=== PATIENT | male | born 1995 | race Caucasian/White ===

== ENCOUNTER 2020-08-27 13:03 | Emergency (ER) | payer MEDICAID ==
[~2020-08-27] VITALS: Ht 180.3 cm; Wt 154.0 kg
[2020-08-27 14:04] LABS: BASOPHILS % 0.4 % (0.0-2.0); EOSINOPHILS % 0.4 % (0.0-5.0); HEMOGLOBIN. 15.8 g/dL (14.0-18.0); LYMPHOCYTES % 14.5 % (20.0-50.0); MEAN CORPUSCULAR HEMOGLOBIN 28.8 pg (28.0-32.0); MEAN CORPUSCULAR VOLUME 85.7 fL (80.0-94.0); MEAN PLATELET VOLUME 9.8 fl (7.4-10.4); MONOCYTES % 7.3 % (2.0-8.0); NEUTROPHILS % 77.4 % (40.0-76.0); PLATELET 196 x1000/uL (130-400); RED BLOOD CELL COUNT 5.49 mill/uL (4.7-6.1); RED CELL DISTRIBUTION WIDTH 14.1 % (11.6-14.6)
[2020-08-27 14:09] LABS: CHLORIDE 109 mEq/L (98-107)
[2020-08-27 15:20] VITALS: BP 130/77
== END 2020-08-27 17:19 | disposition home or self-care (01) ==
LOC: ER 13:15
DX: R06.00 Dyspnea, unspecified (principal); Z86.16 Personal history of COVID-19; E66.01 Morbid (severe) obesity due to excess calories; Z68.42 Body mass index [BMI] 45.0-49.9, adult; Z20.822 Contact with and (suspected) exposure to COVID-19
CPT/HCPCS: 36415; 71045; 80048; 80076; 84484; 85025; 85379; 93005; 99285; C9803; U0003; Z7610

== ENCOUNTER 2021-10-12 10:29 | Emergency (ER) | payer MEDICAID ==
[~2021-10-12] VITALS: Ht 165.1 cm; Wt 108.0 kg
[2021-10-12 10:41] VITALS: BP 154/101
== END 2021-10-12 13:42 | disposition home or self-care (01) ==
LOC: ER 10:41
DX: M72.2 Plantar fascial fibromatosis (principal)
CPT/HCPCS: 73610; 73630; 99284